=== PATIENT | female | born 1985 | race Caucasian/White ===

== ENCOUNTER 2018-07-31 06:59 | Emergency (ER) | payer OTHER, SELFPAY ==
[2018-07-31 07:01] VITALS: BP 133/88; PULSE 74; RESP 16; TEMP 37.2; O2SAT 100
[2018-07-31] MEDS: Ondansetron 4 MG/2 ML VIAL (07:25)
[2018-07-31] MEDS: Normal Saline 1,000 ML 1000 ML IV (07:30)
[2018-07-31 08:07] LABS: Abs Immature Grans 0.03 k/cumm (0.0-0.09); Absolute Basophil Count 0.01 k/cumm (0.0-0.2); Absolute Lymphocyte Count 1.04 k/cumm (1.2-3.4); Absolute Monocyte Count 0.63 k/cumm (0.11-0.7); Absolute Neutrophil Count 11.94 k/cumm (1.2-6.7); Basophils % 0.1; HCT 41.1 % (36.0-46.0); HGB 14.8 g/dL (12.0-15.5); Immature Grans % 0.2; Lymphocytes % 7.6; Mean Corpuscular Hemoglobin 31.1 pg (27.0-33.0); Mean Corpuscular Volume 86.3 fL (80-95); Mean Platelet Volume 9.5 fL (8.0-11.0); Monocytes % 4.6; Neutrophils % 87.5; Platelet Count 255 x1000/uL (130-400); RBC 4.76 m/cumm (4.00-5.20); RBC Distribution Width 12.1 % (11.7-14.6); White Blood Cell Count 13.65 k/cumm (4.4-10.8)
[2018-07-31 08:12] LABS: Bilirubin Negative (Negative); Blood Trace-lysed (Negative); Clarity Sl Cloudy; Glucose Negative (Negative); Ketones 80 mg/dL (Negative); Leukocyte Esterase Moderate (Negative); Nitrite Negative (Negative); Urobilinogen 0.2 EU/dL (Up TO 0.2)
[2018-07-31] MEDS: LORazepam 2 MG/ML VIAL (08:15)
[2018-07-31] MEDS: Lidocaine 2% Viscous 15 ML CUP (08:20)
[2018-07-31] MEDS: Mylanta Suspension 30 ML CUP (08:20)
[2018-07-31 08:30] LABS: Bacteria Many HPF (Negative); C & S Indicated? No/Sq. Contamination; Casts Negative LPF (Negative); Crystals Negative HPF (Negative); Epithelial Cells Many HPF (Negative); Mucus Negative (Negative); RBC 20-50 (0-2); WBC >50 HPF (0-5)
[2018-07-31 08:30] LABS: ALT 40 U/L (12-78); AST 21 U/L (15-37); Albumin 3.4 g/dL (3.4-5.0); Alkaline Phosphatase 93 U/L (46-116); Anion Gap 14.6 mmol/L (3-11); BUN 17 mg/dL (7-18); Bilirubin, Direct 0.16 mg/dL (0.00-0.20); CO2 21.4 mmol/L (21.0-32.0); CREATININE 0.84 mg/dL (0.55-1.02); Calcium 8.3 mg/dL (8.5-10.1); Chloride 102 mmol/L (98-107); Glucose 130 mg/dL (70-100); Lipase 49 U/L (73-393); Magnesium 1.5 mg/dL (1.8-2.4); Potassium 3.3 mmol/L (3.5-5.1); Sodium 138 mmol/L (136-145); Total Protein 7.2 g/dL (6.4-8.2)
[2018-07-31 08:32] LABS: Troponin I < 0.02 ng/mL (0.00-0.06)
[2018-07-31 09:00] VITALS: BP 98/53; PULSE 80; RESP 16; TEMP 37.2; O2SAT 96
== END 2018-07-31 09:02 | disposition home or self-care (01) ==
PROVIDERS: Emergency Provider Emergency Medicine; PCP Nurse Practitioner Family
DX: R11.2 Nausea with vomiting, unspecified (principal); R10.13 Epigastric pain; F10.10 Alcohol abuse, uncomplicated
CPT/HCPCS: 36415; 80053; 80076; 81025; 83690; 96360; 99283; 81003; 81015; 83735; 84484; 85025; J2060; J2405

== ENCOUNTER 2018-12-29 13:21 | Outpatient (REF) | payer OTHER, SELFPAY ==
--- NOTE | 2018-12-29 11:00 | PAPFT_PTH ---
PATIENT: Bethany Leblanc LOC: [facility] U#:[id number] AGE/SX: 33/F ROOM: RE12/29/[address]: SANTO Gordon : 1985 BED: DIS: 12/29/2018 SPEC #: [id number] RECD: 12/30/18 12:56 STATUS: HOLLY RELaura #: [id number] ZANE: 12/29/18 11:[address]: Savita Rosado DEPT: [facility] Cytology RECD BY: Hermila Almeida Tissues: 1 - CX/ENDOCX FOR PAP SMEARS Procedures: PAP THIN PREP/UVM Screening HPV DNA PROBE Comments: [id number]
[2019-01-19 12:34] LABS: HPV 16 RNA Result Negative (Negative)
[2019-01-19 12:35] LABS: HPV 18 & 45 RNA Result Negative (Negative)
== END 2018-12-29 13:41 ==
LOC: LBN 13:21
PROVIDERS: PCP Nurse Practitioner Family; Visit Provider Nurse Practitioner Family
DX: Z12.4 Encounter for screening for malignant neoplasm of cervix (principal); Z11.51 Encounter for screening for human papillomavirus (HPV)
CPT/HCPCS: 87625; 88142; 87624

== ENCOUNTER 2018-12-31 07:53 | Outpatient (CLI) | payer OTHER, SELFPAY ==
--- NOTE | 2018-12-31 07:30 | DI.US_ITS ---
EXAM: US ABDOMEN US ABDOMEN CLINICAL HISTORY: h/o hepatomegaly,etoh abuse,z87.19. h/o hepatomegaly,etoh abuse,z87.19 TECHNIQUE: Ultrasound abdomen performed using standard protocol. COMPARISON: No exams were available for comparison FINDINGS: LIVER: Normal. GALLBLADDER: No evidence of cholelithiasis. No evidence of wall thickening. No pericholecystic fluid identified. KIDNEYS: Kidneys are symmetric in size. No evidence of renal calculi. No evidence of hydronephrosis. No renal mass or cyst identified. BILIARY SYSTEM: Common bile duct measures < 7 mm. No intrahepatic biliary ductal dilation. ALEXIS'S SIGN: Negative. PANCREAS: Normal where visualized. SPLEEN: Not enlarged. ABDOMINAL AORTA AND IVC: Visualized portions normal caliber. ASCITES: None seen. IMPRESSION: Normal sonographic appearance of the upper abdomen.
== END 2018-12-31 08:13 ==
PROVIDERS: PCP Nurse Practitioner Family; Visit Provider Nurse Practitioner Family
DX: F10.19 Alcohol abuse with unspecified alcohol-induced disorder (principal); Z87.19 Personal history of other diseases of the digestive system
CPT/HCPCS: 76700

== ENCOUNTER 2019-01-19 09:33 | Outpatient (REF) | payer OTHER, SELFPAY | END 2019-01-19 09:53 | LOC: LBN 09:33 | PROVIDERS: PCP Nurse Practitioner Family; Visit Provider Nurse Practitioner Family | DX: A59.9 Trichomoniasis, unspecified (principal) | CPT/HCPCS: 87480; 87510; 87660 ==

== ENCOUNTER 2020-07-02 21:13 | Emergency (ER) | payer BC, SELFPAY ==
[2020-07-02] VITALS (21 sets, daily range): BP systolic 114–130; BP diastolic 71–105; PULSE 74–108; RESP 9–24; TEMP 36.3; O2SAT 93–100
[2020-07-02] MEDS: Normal Saline 1,000 ML 1000 ML IV (21:29)
[2020-07-02] MEDS: Ondansetron 4 MG/2 ML VIAL IVP (22:00)
[2020-07-02 22:09] LABS: Abs Immature Grans 0.14 10^3/uL (0.0-0.06); Absolute Lymphocyte Count 1.81 10^3/uL (1.2-3.4); Absolute Monocyte Count 1.19 10^3/uL (0.1-0.8); Basophils % 0.2; HCT 47.6 % (36.0-46.0); Immature Grans % 0.6; Lymphocytes % 8.2; MCH 30.5 pg (27.0-33.0); MCHC 35.7 % (32.0-36.0); MCV 85.3 fL (80-95); MPV 9.7 fL (8.0-11.0); Monocytes % 5.4; Neutrophils % 85.6; Nucleated RBC 0 %; Platelet Count 399 10^3/uL (130-400); RBC 5.58 10^6/uL (3.93-5.22); RDW 12.2 % (11.7-14.6); RDW-SD 38.1 fL
[2020-07-02 22:10] LABS: Absolute Basophil Count 0.04 10^3/uL (0.0-0.2); Absolute Neutrophil Count 18.92 10^3/uL (1.2-6.7)
--- NOTE | 2020-07-02 22:15 | W.ED.GENAD ---
Discharge Plan Disposition Patient Disposition: STILL A PATIENT Condition: Stable Discharge Details Chief Complaint: Nausea/Vomit/Diar Clinical Impression: Nausea & vomiting, Anxiety Primary Care Provider: Savita Rosado ED Provider: Wilbert Arvizu Home Meds and New Rx's Prescriptions: No Action melatonin 10 mg capsule 10 mg PO HS PRN (Reason: sleep) Qty: 90 RF: 0 escitalopram oxalate 20 mg tablet 20 mg PO DAILY Qty: 90 RF: 4 buspirone 10 mg tablet 10 mg PO BID Qty: 180 RF: 4 Medical Decision Making 34-year-old female reports increasing anxiety, depression, grieving her father's . She denies any suicidal or homicidal ideations and feels safe. She drank alcohol, hard liquor, a few shots both yesterday and today. Reports that she has had nausea and vomiting all day today, concerned about dehydration. She denies any fever, abdominal pain, bad food exposure or sick contacts. Patient is concerned that she cannot hold anything down and is requesting IV fluids as well as something for anxiety. Patient appears anxious, slightly dry, obtain IV access, give IV fluids, Zofran, 1 mg Ativan, obtain CBC, CMP, lipase, alcohol level, urinalysis, test, tox screen. Patient reports no significant change after the Zofran although she is requesting gary catalina Laboratory values reveal a white blood cell count of 22.10, hemoglobin 17, hematocrit 47.6, platelet count 399. No clear source of infection on her examination. Potassium 3.4, anion gap of 20.7 creatinine 1.3, GFR 47.17, total bili 1.9 alcohol less than 3. Patient unable to provide a urine sample. Patient given gary catalina, vomited x1. Will give 25 IV Phenergan, a liter of lactated Ringer's, 40 p.o. potassium. Patient reports anxiety improving with the IV Ativan Again patient appears well, nontoxic. Leukocytosis may simply be secondary to her vomiting today, again no clear sign of infection. Cannot completely explain her elevated anion gap. Like to repeat laboratory values after her IV fluids have completed. Case discussed with Dr. Avelar who will accept signout, requested VBG, BMP, A1C. Patient ambulatory without difficulty to the restroom, able to provide a urine sample. Medical Records Medical records reviewed: Yes I reviewed the patient's medical records. Lab Data Lab results reviewed: Yes I reviewed the patient's lab results. Labs: Laboratory Tests Range/Units 07/02/20 07/02/20 07/02/20 21:25 21:25 21:25 WBC (4.4-10.8) 10^3/uL 22.10 H RBC (3.93-5.22) 10^6/uL 5.58 H Hgb (11.2-15.7) g/dL 17.0 H Hct (36.0-46.0) % 47.6 H MCV (80-95) fL 85.3 MCH (27.0-33.0) pg 30.5 MCHC (32.0-36.0) % 35.7 RDW (11.7-14.6) % 12.2 Plt Count (130-400) 10^3/uL 399 MPV (8.0-11.0) fL 9.7 Immature Gran % 0.6 Neutrophils % 85.6 Band Neutrophils % Lymphocytes % 8.2 Atypical Lymphs % Monocytes % 5.4 Eosinophils % 0.0 Basophils % 0.2 Metamyelocytes % Myelocytes % Promyelocytes % Other Cells % Nucleated RBC % % 0 Absolute Neutrophils (1.2-6.7) 10^3/uL 18.92 H Absolute Lymphocytes (1.2-3.4) 10^3/uL 1.81 Absolute Monocytes (0.1-0.8) 10^3/uL 1.19 H Absolute Eosinophils (0.0-0.7) 10^3/uL 0.00 Absolute Basophils (0.0-0.2) 10^3/uL 0.04 RBC Morphology Polychromasia Hypochromasia Poikilocytosis Basophilic Stippling Anisocytosis Microcytosis Macrocytosis Spherocytes Tear Drop Cells Ovalocytes Stomatocytes Plata-Griswold Bodies [place] Cells/Echinocytes Acanthocytes (Spur) Schistocytes VBG pH (7.31-7.41) VBG pCO2 (41-51) mmHg VBG pO2 mmHg VBG HCO3 (23-28) mmol/L VBG Total CO2 (24-29) mmol/L VBG O2 Saturation % VBG Base Excess (-2-3) mmol/L Sodium (136-145) mmol/L 140 Potassium (3.5-5.1) mmol/L 3.4 L Chloride (98-107) mmol/L 99 Carbon Dioxide (21.0-32.0) mmol/L 20.3 L Anion Gap (3-11) mmol/L 20.7 H BUN (7-18) mg/dL 18 Creatinine (0.55-1.02) mg/dL 1.3 H Estimated GFR/1.73 m2 (mL/min/1.73m2) 47.17 Glucose (74-106) mg/dL 184 H Calcium (8.5-10.1) mg/dL 9.5 Total Bilirubin (0.2-1.0) mg/dL 1.9 H AST (15-37) U/L 20 ALT (14-59) U/L 23 Alkaline Phosphatase (46-116) U/L 96 Total Protein (6.4-8.2) g/dL 8.9 H Albumin (3.4-5.0) g/dL 4.1 Lipase (73-393) U/L 41 Ethyl Alcohol (<3) mg/dL < 3.0 Range/Units 07/02/20 07/02/20 07/02/20 23:25 23:25 23:40 WBC (4.4-10.8) 10^3/uL Cancelled RBC (3.93-5.22) 10^6/uL Cancelled Hgb (11.2-15.7) g/dL Cancelled Hct (36.0-46.0) % Cancelled MCV (80-95) fL Cancelled MCH (27.0-33.0) pg Cancelled MCHC (32.0-36.0) % Cancelled RDW (11.7-14.6) % Cancelled Plt Count (130-400) 10^3/uL Cancelled MPV (8.0-11.0) fL Cancelled Immature Gran % Cancelled Neutrophils % Cancelled Band Neutrophils % Cancelled Lymphocytes % Cancelled Atypical Lymphs % Cancelled Monocytes % Cancelled Eosinophils % Cancelled Basophils % Cancelled Metamyelocytes % Cancelled Myelocytes % Cancelled Promyelocytes % Cancelled Other Cells % Cancelled Nucleated RBC % % Cancelled Absolute Neutrophils (1.2-6.7) 10^3/uL Cancelled Absolute Lymphocytes (1.2-3.4) 10^3/uL Cancelled Absolute Monocytes (0.1-0.8) 10^3/uL Cancelled Absolute Eosinophils (0.0-0.7) 10^3/uL Cancelled Absolute Basophils (0.0-0.2) 10^3/uL Cancelled RBC Morphology Cancelled Polychromasia Cancelled Hypochromasia Cancelled Poikilocytosis Cancelled Basophilic Stippling Cancelled Anisocytosis Cancelled Microcytosis Cancelled Macrocytosis Cancelled Spherocytes Cancelled Tear Drop Cells Cancelled Ovalocytes Cancelled Stomatocytes Cancelled Plata-Griswold Bodies Cancelled Anni Cells/Echinocytes Cancelled Acanthocytes (Spur) Cancelled Schistocytes Cancelled VBG pH (7.31-7.41) 7.44 H VBG pCO2 (41-51) mmHg 39 L VBG pO2 mmHg 37 VBG HCO3 (23-28) mmol/L 26 VBG Total CO2 (24-29) mmol/L 23 L VBG O2 Saturation % 70 VBG Base Excess (-2-3) mmol/L 2 Sodium (136-145) mmol/L Cancelled Potassium (3.5-5.1) mmol/L Cancelled Chloride (98-107) mmol/L Cancelled Carbon Dioxide (21.0-32.0) mmol/L Cancelled Anion Gap (3-11) mmol/L Cancelled BUN (7-18) mg/dL Cancelled Creatinine (0.55-1.02) mg/dL Cancelled Estimated GFR/1.73 m2 (mL/min/1.73m2) Cancelled Glucose (74-106) mg/dL Cancelled Calcium (8.5-10.1) mg/dL Cancelled Total Bilirubin (0.2-1.0) mg/dL Cancelled AST (15-37) U/L Cancelled ALT (14-59) U/L Cancelled Alkaline Phosphatase (46-116) U/L Cancelled Total Protein (6.4-8.2) g/dL Cancelled Albumin (3.4-5.0) g/dL Cancelled Lipase (73-393) U/L Ethyl Alcohol (<3) mg/dL HPI General Mode of arrival: EMS. Date/Time Provider Initiated Documentation: 07/02/20 21:17. Limitations to Documentation: no limitations. Information obtained by: patient and EMS. HPI Narrative: This is a 34-year-old female, past medical history of anxiety, depression, alcohol abuse in remission, presented to the ER for evaluation via EMS. Patient states that she has been sober for 2 years, drink a few shots of alcohol yesterday and today, developed nausea, vomiting, increased anxiety and grief over her father's . She denies feeling suicidal or homicidal. Patient reports that she has been vomiting all day, one episode of diarrhea, simply cannot hold anything down and concerned about dehydration. She denies recent illness or trauma. Denies bad food exposure or sick contacts. She denies headache, fever, neck pain, chest pain, shortness of breath, back pain, abdominal pain, dysuria, hematuria, numbness, tingling, weakness. Related Data Home Medications Medication Instructions Recorded Confirmed escitalopram oxalate 20 mg tablet 20 mg PO DAILY #90 tab 02/26/20 07/02/20 melatonin 10 mg capsule 10 mg PO HS PRN #90 cap 04/29/20 07/02/20 buspirone 10 mg tablet 10 mg PO BID #180 tab 05/31/20 07/02/20 Previous Rx's Medication Instructions Recorded escitalopram oxalate 20 mg tablet 20 mg PO DAILY #90 tab 02/26/20 melatonin 10 mg capsule 10 mg PO HS PRN #90 cap 04/29/20 buspirone 10 mg tablet 10 mg PO BID #180 tab 05/31/20 Allergies Allergy/AdvReac Type Severity Reaction Status Date / Time No Known Allergies Allergy Verified 07/02/20 21:23 General Stated Complaint: Nausea/Vomit/Diar JOSUÉ: 3 Review of Systems Constitutional Constitutional: Denies fatigue, Denies fever(s), Denies headache(s) and Denies weakness ENT Ears, Nose, Mouth, and Throat: Denies headache(s) and Denies neck pain Cardiovascular Cardiovascular: Denies chest pain and Denies dyspnea Respiratory Respiratory: Denies cough and Denies dyspnea Gastrointestinal Gastrointestinal: Denies abdominal pain, Denies constipation, Reports diarrhea, Reports nausea and Reports vomiting Genitourinary Genitourinary: Denies dysuria Musculoskeletal Musculoskeletal: Denies back pain, Denies neck pain, Denies numbness and Denies tingling Integumentary/Breasts Skin/Breast: Denies rash Neurologic Neurologic: Denies headache(s), Denies numbness, Denies tingling and Denies weakness Psychiatric Psychiatric: Reports anxiety and Reports depression Endocrine Endocrine: Denies fatigue [facility] Medical History Alcohol use disorder, severe, in early remission Generalized anxiety disorder Grief Major depressive disorder Surgical History History of repair of anterior cruciate ligament of right knee (~2005) Family History Mother Hyperlipidemia Father Colon cancer Maternal Grandfather , in his 70s Hyperlipidemia AAA (abdominal aortic aneurysm) Heart disease Maternal Grandmother , at 52 of brain aneurysm Brain aneurysm Paternal Grandfather Hypertension Paternal Grandmother No problems noted. Social History Smoking/Tobacco Use Status: Never Smoking risk assessment performed?: Yes Alcohol Intake: current Alcohol type: hard liquor Drug use: Occasionally Substance use type: marijuana Caregiver/Support person: No Household members: friend(s) Housing: condominium Communication Needs: None Do you need help understanding health information?: Never Pets and animals: Yes (bunnies) Sexually active: No Do you think of yourself as: straight/heterosexual Current gender identity: decline to answer What is your relationship status?: never How often do you talk on the phone with friends or family?: three or more times per week How often do you get together with friends or relatives?: decline to answer How often do you attend anabaptist or anglican services?: 1-3 times per year Do you belong to any clubs or organized social groups?: decline to answer Panel score (0-1 are the most socially isolated patients): 1 Frequency: does not exercise Keyanna/Restorationism: Denominational Special keyanna needs: No Seatbelt use: always Helmet use: Yes Helmet use: always Drive intox or ride w/intox tilt tray driver: No Do you feel safe at home: Yes Do you feel safe in your relationship?: Yes Female Reproductive History Menstrual control method: none History History 0 Para Hx # Term Pregnancies Multiple births Hx # Pregnancies Ectopic pregnancies AB induced Hx Number of Living Children AB spontaneous Exam Const General: cooperative, anxious and other (Dry heaving, tearful) Orientation: alert, awake and oriented x3 [facility] Head: normal to inspection, normocephalic and atraumatic Face and sinus: normal facial exam Mouth: moist mucous membranes abnormal (Dry) Eyes General: appearance normal, both eyes and all related structures Conjunctivae: conjunctivae normal Neck Neck: normal visual inspection, full ROM, no meningeal signs, trachea midline and supple Resp Effort & Inspection: normal respiratory effort and able to speak in complete sentences Auscultation: clear to auscultation bilaterally Cardio Rate: regular rate Rhythm: regular rhythm GI Palpation: soft, not firm, no guarding, no pulsatile masses and nontender Auscultation: normal bowel sounds Back/Spine/Pelvis Back: No back tenderness Skin General skin exam: no rashes or lesions noted Neuro General: patient alert, patient awake, moves all extremities and no focal motor deficits Cognition: normal cognition Speech: speech normal Motor: muscle tone normal throughout Sensory Exam: no sensory deficits noted Extrem General: normal to inspection, full ROM, capillary refill normal and no pedal edema Psych Appearance: grossly normal Mental Status: mental status grossly normal Course Vital Signs Vital signs: Vital Signs Temperature 36.3 C L 07/02/20 21:14 Pulse 82 07/02/20 21:14 Respiratory Rate 24 07/02/20 21:14 Pulse Oximetry 99 07/02/20 21:14 Temperature 36.3 C L 07/02/20 21:14 Temperature Source Skin 07/02/20 21:14 Pulse 82 07/02/20 21:14 Respiratory Rate 24 07/02/20 21:14 Blood Pressure Position Supine 07/02/20 21:14 Pulse Oximetry 99 07/02/20 21:14 Oxygen Delivery Method Room Air 07/02/20 21:14 Oxygen Flow Rate 0 07/02/20 21:14 Lab/Test Results Lab/Test Results: Laboratory Tests Range/Units 07/02/20 21:25 WBC (4.4-10.8) 10^3/uL 22.10 H RBC (3.93-5.22) 10^6/uL 5.58 H Hgb (11.2-15.7) g/dL 17.0 H Hct (36.0-46.0) % 47.6 H MCV (80-95) fL 85.3 MCH (27.0-33.0) pg 30.5 MCHC (32.0-36.0) % 35.7 RDW (11.7-14.6) % 12.2 Plt Count (130-400) 10^3/uL 399 MPV (8.0-11.0) fL 9.7 Immature Gran % 0.6 Neutrophils % 85.6 Lymphocytes % 8.2 Monocytes % 5.4 Eosinophils % 0.0 Basophils % 0.2 Nucleated RBC % % 0 Absolute Neutrophils (1.2-6.7) 10^3/uL 18.92 H Absolute Lymphocytes (1.2-3.4) 10^3/uL 1.81 Absolute Monocytes (0.1-0.8) 10^3/uL 1.19 H Absolute Eosinophils (0.0-0.7) 10^3/uL 0.00 Absolute Basophils (0.0-0.2) 10^3/uL 0.04
[2020-07-02 22:22] LABS: ALT 23 U/L (14-59); AST 20 U/L (15-37); Albumin 4.1 g/dL (3.4-5.0); Alkaline Phosphatase 96 U/L (46-116); Anion Gap 20.7 mmol/L (3-11); BUN 18 mg/dL (7-18); Bilirubin, Total 1.9 mg/dL (0.2-1.0); CO2 20.3 mmol/L (21.0-32.0); CREATININE 1.3 mg/dL (0.55-1.02); Calcium 9.5 mg/dL (8.5-10.1); Chloride 99 mmol/L (98-107); Estimated GFR 47.17 (mL/min/1.73m2); Glucose 184 mg/dL (74-106); Lipase 41 U/L (73-393); Potassium 3.4 mmol/L (3.5-5.1); Sodium 140 mmol/L (136-145); Total Protein 8.9 g/dL (6.4-8.2)
[2020-07-02 22:31] LABS: ETHANOL BLOOD < 3.0 mg/dL (<3)
[2020-07-02] MEDS: Lactated Ringers 1,000 ML 1000 ML IV (22:42)
[2020-07-02] MEDS: LORazepam 2 MG/ML VIAL 1 MG IVP (22:42)
[2020-07-02] MEDS: Potassium Chloride 20 MEQ TABCR 40 MEQ PO (22:56)
[2020-07-02 23:48] LABS: BE (Venous) 2 mmol/L (-2-3); HCO3 (Venous) 26 mmol/L (23-28); O2 Sat (Venous) 70 %; TCO2 (Venous) 23 mmol/L (24-29); pCO2 (Venous) 39 mmHg (41-51); pH (Venous) 7.44 (7.31-7.41); pO2 (Venous) 37 mmHg
[2020-07-02 23:57] LABS: Anion Gap 13.4 mmol/L (3-11); BUN 15 mg/dL (7-18); CO2 25.6 mmol/L (21.0-32.0); CREATININE 1.1 mg/dL (0.55-1.02); Calcium 8.3 mg/dL (8.5-10.1); Chloride 104 mmol/L (98-107); Glucose 115 mg/dL (74-106); Potassium 3.2 mmol/L (3.5-5.1); Sodium 143 mmol/L (136-145)
[2020-07-02 23:58] LABS: Bilirubin Negative (Negative); Blood Moderate (Negative); Clarity Clear (Clear); Glucose Negative (Negative); Ketones 80 mg/dL (Negative); Leukocyte Esterase Trace (Negative); Nitrite Negative (Negative); Urobilinogen 0.2 EU/dL (Up TO 0.2)
[2020-07-03 00:01] LABS: Hemoglobin A1C 5.4 % (<5.7)
[2020-07-03 00:07] VITALS: BP 122/73; PULSE 102; O2SAT 99
[2020-07-03 00:09] LABS: Bacteria Rare HPF (Negative); C & S Indicated? Yes; Casts Negative LPF (Negative); Crystals Negative HPF (Negative); Epithelial Cells Rare HPF (Negative); Mucus Negative (Negative)
[2020-07-03 00:19] LABS: *AMPHETAMINES SCREEN URINE Negative (Negative); *BARBITURATES SCREEN URINE Negative (Negative); *BENZODIAZEPINES SCREEN URINE Negative (Negative); Cannabinoids THC Positive (Negative); Cocaine Screen,Urine Negative (Negative); METHADONE URINE SCREEN Negative (Negative); OPIATES URINE SCREEN Negative (Negative)
[2020-07-03 00:24] LABS: Tricyclic Antidepressants Negative (Negative)
[2020-07-03] MEDS: POTASSIUM CHLORIDE 10 MEQ/100 ML BAG 100 MEQ IVPB (00:38)
[2020-07-03] MEDS: FAMOTIDINE 20 MG/50 ML BAG 200 MG IVPB (00:38)
[2020-07-03] MEDS: Lactated Ringers 1,000 ML 250 ML IV (00:38)
[2020-07-03] MEDS: diphenhydrAMINE 50 MG/ML VIAL 25 MG IVP (00:39)
[2020-07-03 01:35] VITALS: BP 117/45; PULSE 88; O2SAT 96
[2020-07-03 02:13] VITALS: PULSE 94; O2SAT 100
== END 2020-07-03 03:10 | disposition home or self-care (01) ==
PROVIDERS: Physician Assistant; Emergency Provider Emergency Medicine; PCP Nurse Practitioner Family
DX: R11.2 Nausea with vomiting, unspecified (principal); D72.829 Elevated white blood cell count, unspecified; E87.6 Hypokalemia; F10.21 Alcohol dependence, in remission; F41.9 Anxiety disorder, unspecified
CPT/HCPCS: 80048; 80053; 80307; 81025; 82805; 83690; 96361; 96365; 96367; 96368; 96375; 99284; 80320; 81003; 81015; 83036; 85025; 87086; J1200; J2060; J2405; J3480

== ENCOUNTER 2020-07-04 13:22 | Emergency (ER) | payer BC, SELFPAY ==
[2020-07-04] VITALS (21 sets, daily range): BP systolic 104–144; BP diastolic 74–98; PULSE 68–106; RESP 10–27; TEMP 36.6–37.2; O2SAT 97–99
--- NOTE | 2020-07-04 13:34 | W.ED.GENAD ---
Discharge Plan Disposition Patient Disposition: HOME Condition: Stable Discharge Details Clinical Impression: Nausea & vomiting, Grief Primary Care Provider: Saivta Rosado ED Provider: Sendy Dumont Home Meds and New Rx's Prescriptions: New promethazine 25 mg suppository 25 mg FL Q6H PRN (Reason: nausea and vomiting) Qty: 12 RF: 0 Continued melatonin 10 mg capsule 10 mg PO HS PRN (Reason: sleep) Qty: 90 RF: 0 escitalopram oxalate 20 mg tablet 20 mg PO DAILY Qty: 90 RF: 4 buspirone 10 mg tablet 10 mg PO BID Qty: 180 RF: 4 promethazine 25 mg tablet 25 mg PO Q6H PRNQty: 10 RF: 0 famotidine 20 mg tablet 20 mg PO BID Qty: 10 RF: 0 Discharge Instructions Instructions: Depression (ED), Acute Nausea and Vomiting (ED) Additional Instructions: Rectal Phenergan has been prescribed in the event you have recurrence of your nausea or vomiting. This has been sent to your pharmacy. Please stop self inducing vomiting as this may be precipitating your current issues. Please abstain from alcohol. Please see list that was supplied by [facility] for local options for continued care for depression. Please reconsider establishing with [facility] their number is on the paper attached. Please follow-up with your primary care within the next 48 hours for reevaluation continue care of your depression as well. If you develop inability stay hydrated, fever/chills, abdominal pain, suicidal thoughts or other new/worsening symptoms please seek care urgently once again. Referrals: Savita Rosado, MICA PASTER [Primary Care Provider] - Discharge Data Discharge Date/Time-TO BE ENTERED AT DEPARTURE: 07/04/20 19:22 Medical Decision Making <Caty Chance - Last Filed: 07/05/20 08:21> 34-year-old female presents to the ER via EMS with chief complaint of nausea vomiting. She was seen here 48 hours for similar after drinking some alcohol. She does endorse alcohol use this morning of vodka on able to give me an amount. She was given 4 mg of Zofran IM by EMS prior to arrival. Denies any illicit drugs. Denies any diarrhea. Intoxicated. Does have a past medical history alcohol use disorder, generalized anxiety, major depressive disorder. Patient reevaluation she has received 1 L normal saline, promethazine 25 mg IV, 4 mg Zofran IV and 1 mg lorazepam IV. Upon entering room patient is still complaining of nausea. She has had one episode of emesis since being in the department. Her labs are much improved from last visit white blood cell count 11.97, potassium 3.3, anion gap 16.2, glucose 132, total bilirubin 1.4 AST is 40, ethyl alcohol is less than 3.0. Patient is denying any pain at this time. Only complaint is he cannot get comfortable and is continuing to have nausea. Care is to be handed off to oncoming provider HUGO Jaimes pending reevaluation and disposition. At this time I do expect disposition to be discharged. Patient was hemodynamically stable alert and oriented at the time of this dictation. <HUGO Orr - Last Filed: 07/04/20 20:41> Care transition myself from Katelin Caceres NP. Please see her initial note regarding history, presentation and exam. In brief, patient is a pleasant 34-year-old female with chief complaint of nausea and vomiting after large amount of alcohol intake. This is associated with the recent loss of her father and the patient's preferred coping mechanism. Patient has received Zofran, promethazine, lorazepam. Care transitioned to myself with reassessment and PO challenge pending. Reevaluated the patient, she continued to endorse nausea. Will give IV compazine. Also discussed her coping mechanism of alcohol and depression. Patient reports his mother father's caregiver immediately begins crying when we discussed this. She is not actively expressing suicidal homicidal ideations. However, discussed that evaluation with mental health would be appropriate as the patient would likely benefit greatly from routine therapy at this time. HOping this may also help reduce the amount of alcohol intake she has been having. Reevaluated patient. She is sleeping but when around continues to report pain level of nausea. Patient did vomit on the floor, vomiting blankets. She has refused emesis bags. If no been reported patient was also self inducing vomiting which was witnessed by at least 2 members of nursing staff. Patient was evaluated by mental [facility]. Per their report, patient refused to speak with them. She prefers to establish care with her counselor with her primary care provider. However, she is aware of the local resources and a list of these resources was supplied by mental health. She continues to deny thoughts of self-harm, suicidal ideation or thoughts of harming others to mental health I reevaluated the patient. She is requesting discharge at this time. She and I did discuss that she was self inducing vomiting earlier. She reports that this has been what has been leading to all of her episodes of emesis. Encourage cessation of this activity. Also encouraged that she abstain from alcohol intake. Patient plans to follow-up with her primary care in the next 1 to 2 days for reevaluation and discuss counseling further. Strict return precautions were discussed. Will prescribe Zofran in the event that she has any recurrence of her nausea or vomiting. All of her questions and concerns were addressed and she is in agreement this plan. HPI <Caty Chance - Last Filed: 07/05/20 08:21> General Mode of arrival: EMS. Date/Time Provider Initiated Documentation: 07/04/20 13:33. Limitations to Documentation: no limitations. Information obtained by: patient, EMS, RN notes reviewed and old records reviewed. HPI Narrative: 34-year-old female presents to the ER via EMS with chief complaint of nausea vomiting. She was seen here 48 hours for similar after drinking some alcohol. She does endorse alcohol use this morning of vodka on able to give me an amount. She was given 4 mg of Zofran IM by EMS prior to arrival. Denies any illicit drugs. Denies any diarrhea. Intoxicated. Does have a past medical history alcohol use disorder, generalized anxiety, major depressive disorder. Related Data Home Medications Medication Instructions Recorded Confirmed escitalopram oxalate 20 mg tablet 20 mg PO DAILY #90 tab 02/26/20 07/02/20 melatonin 10 mg capsule 10 mg PO HS PRN #90 cap 04/29/20 07/02/20 buspirone 10 mg tablet 10 mg PO BID #180 tab 05/31/20 07/02/20 famotidine 20 mg PO BID #10 tab 07/03/20 promethazine 25 mg PO Q6H PRN #10 tab 07/03/20 promethazine 25 mg FL Q6H PRN #12 ea 07/04/20 Previous Rx's Medication Instructions Recorded escitalopram oxalate 20 mg tablet 20 mg PO DAILY #90 tab 02/26/20 melatonin 10 mg capsule 10 mg PO HS PRN #90 cap 04/29/20 buspirone 10 mg tablet 10 mg PO BID #180 tab 05/31/20 famotidine 20 mg PO BID #10 tab 07/03/20 promethazine 25 mg PO Q6H PRN #10 tab 07/03/20 promethazine 25 mg FL Q6H PRN #12 ea 07/04/20 Allergies Allergy/AdvReac Type Severity Reaction Status Date / Time No Known Allergies Allergy Verified 07/02/20 21:23 General JOSUÉ: 3 Review of Systems <Caty Chance - Last Filed: 07/05/20 08:21> Narrative: Constitutional: Negative for weight loss, alert and oriented, well groomed, overweight body habitus, appears comfortable. HEENT: Denies trauma, headaches, blurry vision, nasal discharge, sore throat, trouble swallowing. Chest: Denies chest pain, palpitations, irregular rhythm, hypertension. Respiratory: Denies Shortness of breath, cough, hemoptysis. GI: Denies abdominal pain,diarrhea, constipation. Positive nausea vomiting : Denies dysuria, hematuria, flank pain, rectal bleeding. Neuro: Denies dizziness, blurry vision, weakness, syncope, headache or facial numbness. Hematologic: Denies easy bruising, intolerance to heat or cold, hair loss. PFSH <Caty Chance - Last Filed: 07/05/20 08:21> Medical History Alcohol use disorder, severe, in early remission Generalized anxiety disorder Grief Major depressive disorder Surgical History History of repair of anterior cruciate ligament of right knee (~2005) Family History Mother Hyperlipidemia Father Colon cancer Maternal Grandfather , in his 70s Hyperlipidemia AAA (abdominal aortic aneurysm) Heart disease Maternal Grandmother , at 52 of brain aneurysm Brain aneurysm Paternal Grandfather Hypertension Paternal Grandmother No problems noted. Social History Smoking/Tobacco Use Status: Never Smoking risk assessment performed?: Yes Alcohol Intake: current Alcohol type: hard liquor Drug use: Never Substance use type: marijuana Caregiver/Support person: No Household members: friend(s) Housing: condominium Communication Needs: None Do you need help understanding health information?: Never Pets and animals: Yes (bunnies) Sexually active: No Do you think of yourself as: straight/heterosexual Current gender identity: decline to answer What is your relationship status?: never How often do you talk on the phone with friends or family?: three or more times per week How often do you get together with friends or relatives?: decline to answer How often do you attend roman catholic or druze services?: 1-3 times per year Do you belong to any clubs or organized social groups?: decline to answer Panel score (0-1 are the most socially isolated patients): 1 Frequency: does not exercise Keyanna/Congregation: [employer] Special keyanna needs: No Seatbelt use: always Helmet use: Yes Helmet use: always Drive intox or ride w/intox ambulette driver: No Do you feel safe at home: Yes Do you feel safe in your relationship?: Yes Female Reproductive History Menstrual control method: none History History 0 Para Hx # Term Pregnancies Multiple births Hx # Pregnancies Ectopic pregnancies AB induced Hx Number of Living Children AB spontaneous Exam <Caty Chance SwipeGood Filed: 07/05/20 08:21> Narrative Exam Narrative: Constitutional: Alert and oriented x3. Appears stated age. Normal body habitus. Head: Normocephalic, no trauma. Eyes: Pupils PERRLA, Red reflex noted, EOM's intact. Eyelids symmetrical without lesions, discharge, or swelling. ENT: Bilateral TM's WNL, External ear normal to inspection, no mastoid TTP, swelling, or erythema, Nasal turbinates WNL, no nasal discharge. Normal dentition, Posterior pharynx WNL, no exudate. Chest: RRR, Normal S1, S2, distal pulses intact. Resp: Lungs clear to auscultation bilaterally, no wheezes, rales, or rhonchi. Abdomen:Soft, nontender to palpation. Musculoskeletal: Normal gait, 5/5 strength to all four extremities. Skin: No suspicious rashes or lesions. Capillary refill less than 2 sec. Neurologic: Cranial nerves II-XII intact. Alert and oriented x 3. DTR's intact. Hematologic/Lymphatic: No ecchymosis, no lymphadenopathy. Sign Out <Caty Meron - Last Filed: 07/05/20 08:21> Sign Out Data: Sign Out Comment: Patient re-eval after meds, PO challenge, expected disposition DC Last updated by Caty Chance at 07/04/20 15:49
[2020-07-04] MEDS: Normal Saline 1,000 ML 1000 ML IV ×2 (13:41→16:27)
[2020-07-04 13:49] LABS: Abs Immature Grans 0.03 10^3/uL (0.0-0.06); Absolute Basophil Count 0.05 10^3/uL (0.0-0.2); Absolute Eosinophil Count 0.01 10^3/uL (0.0-0.7); Absolute Lymphocyte Count 3.21 10^3/uL (1.2-3.4); Absolute Monocyte Count 0.61 10^3/uL (0.1-0.8); Absolute Neutrophil Count 8.06 10^3/uL (1.2-6.7); Basophils % 0.4; Eosinophils % 0.1; HCT 42.7 % (36.0-46.0); HGB 15.2 g/dL (11.2-15.7); Immature Grans % 0.3; Lymphocytes % 26.8; MCH 30.5 pg (27.0-33.0); MCHC 35.6 % (32.0-36.0); MCV 85.6 fL (80-95); MPV 9.3 fL (8.0-11.0); Monocytes % 5.1; Neutrophils % 67.3; Nucleated RBC 0 %; Platelet Count 298 10^3/uL (130-400); RBC 4.99 10^6/uL (3.93-5.22); RDW 12.2 % (11.7-14.6); RDW-SD 38.1 fL; WBC 11.97 10^3/uL (4.4-10.8)
[2020-07-04] MEDS: LORazepam 2 MG/ML VIAL 1 MG IVP (13:59)
[2020-07-04 14:12] LABS: ALT 33 U/L (14-59); AST 40 U/L (15-37); Albumin 3.6 g/dL (3.4-5.0); Alkaline Phosphatase 75 U/L (46-116); Anion Gap 15.2 mmol/L (3-11); BUN 16 mg/dL (7-18); Bilirubin, Total 1.4 mg/dL (0.2-1.0); CO2 22.8 mmol/L (21.0-32.0); CREATININE 0.9 mg/dL (0.55-1.02); Calcium 8.9 mg/dL (8.5-10.1); Chloride 103 mmol/L (98-107); Glucose 132 mg/dL (74-106); Magnesium 1.8 mg/dL (1.8-2.4); Potassium 3.3 mmol/L (3.5-5.1); Sodium 141 mmol/L (136-145)
[2020-07-04 14:14] LABS: Total Protein 7.9 g/dL (6.4-8.2)
[2020-07-04 14:15] LABS: ETHANOL BLOOD < 3.0 mg/dL (<3)
[2020-07-04] MEDS: Ondansetron 4 MG/2 ML VIAL IVP (14:51)
[2020-07-04 15:19] LABS: Bilirubin Negative (Negative); Blood Trace-intact (Negative); Clarity Clear (Clear); Glucose Negative (Negative); Ketones 40 mg/dL (Negative); Leukocyte Esterase Negative (Negative); Nitrite Negative (Negative); Specific Gravity 1.025 (1.005-1.025); Urobilinogen 0.2 EU/dL (Up TO 0.2); pH 8.5 (5-8)
[2020-07-04 15:27] LABS: Bacteria Negative HPF (Negative); C & S Indicated? No; Casts Negative LPF (Negative); Crystals Negative HPF (Negative); Epithelial Cells Rare HPF (Negative); Mucus Negative (Negative); WBC Negative HPF (0-5)
[2020-07-04] MEDS: diphenhydrAMINE 50 MG/ML VIAL 25 MG IVP (16:01)
[2020-07-04] MEDS: FAMOTIDINE 20 MG/50 ML BAG 200 MG IVPB (16:02)
[2020-07-04] MEDS: Prochlorperazine 10 MG/2 ML VIAL IVP (16:55)
--- NOTE | 2020-07-05 15:50 | PDOC.MHCN_ITS ---
Date of service: 07/04/20 Time of Service: 15:50 Mental Health Crisis Note Presenting Issue How did you arrive at the ED and why did you come: Client arrived via ambulance with complaint of severe nausea and vomiting after ingesting an unspecified amount of alcohol earlier in the AM today. It is reported by attending medical provider that the client suffered a loss recently and that her primary coping mechanism to treat her depressive symptoms with alcohol use and alleged self- induced vomiting behaviors. Precipitating Factors Client appearance was disheveled with poor general grooming. She is alert and o riented to time, person, place, and global circumstance. Memory seemed intact with impaired concentration. Eye contact poor. She presented in significant discomfort / pain and was observed to continuously writhe around on the hospital bed while complaining about severe nausea. Engagement was minimal - she offered monosyllabic yes/no responses to most questions and did not appear interested in discussing presenting issues due to preoccupation with severity of adverse physical symptoms. No evidence of delusions, paranoia, or psychotic thought process. She denied current SI/HI/SIB, intent or plan and did not appear interested in extending assessment beyond initial contact. She denied issues with alcohol / substance abuse. Assessment tools not completed due to lack of engagement. Disposition BEHAVIOR: Not engaged EYE CONTACT: Poor MOOD: N/A AFFECT: Client appeared distractible and was preoccupied with nausea complaint APPETITE: N/A SLEEP(trouble falling/staying asleep: N/A Plan The client declined intake and need for services through [facility] at time of interaction. She reported that she will follow-up with her PCP about a counseling referral and agreed to have this commercial lines underwriter leave additional resource options at the nurse station, to be distributed upon discharge. The following resources were left: - [facility] grief-support list - Behavioral Health Provider Listing - [facility] Support line contact information Signature Clinician's Name/Title: Lonnie Salinas [facility] [place] clinician / [facility], [place]
== END 2020-07-04 19:22 | disposition home or self-care (01) ==
PROVIDERS: Registered Nurse Emergency; Emergency Provider Physician Assistant; PCP Nurse Practitioner Family
DX: R11.0 Nausea (principal); R11.2 Nausea with vomiting, unspecified; F32.9 Major depressive disorder, single episode, unspecified; R10.10 Upper abdominal pain, unspecified
CPT/HCPCS: 80053; 81025; 96361; 96365; 96366; 96368; 96375; 99284; 80320; 81003; 81015; 83735; 85025; J0780; J1200; J2060; J2405

== ENCOUNTER 2021-12-01 09:22 | Outpatient (REF) | payer BC, SELFPAY ==
--- NOTE | 2021-12-01 08:30 | PAPFT_PTH ---
PATIENT: Bethany Leblanc LOC: [facility] U#:[id number] AGE/SX: 36/F ROOM: RE12/01/[address]: SANTO Gordon : 1985 BED: DIS: 12/01/2021 SPEC #: [id number] RECD: 12/01/21 12:49 STATUS: HOLLY REQ #: [id number] ZANE: 12/01/21 08:[address]: Savita Rosado DEPT: [facility] Cytology RECD BY: Hermila Almeida Tissues: 1 - CX/ENDOCX FOR PAP SMEARS Procedures: PAP THIN PREP/[facility]VM Screening HPV DNA PROBE Comments: [id number] (HPV 16 & 18/45)
== END 2021-12-01 09:23 | disposition home or self-care (01) ==
LOC: LBN 09:22
PROVIDERS: PCP Nurse Practitioner Family; Visit Provider Nurse Practitioner Family
DX: R87.810 Cervical high risk human papillomavirus (HPV) DNA test positive (principal); Z12.4 Encounter for screening for malignant neoplasm of cervix; Z11.51 Encounter for screening for human papillomavirus (HPV)
CPT/HCPCS: 88142; 87624

== ENCOUNTER 2021-12-19 14:40 | Outpatient (REF) | payer BC, SELFPAY ==
--- NOTE | 2021-12-19 11:10 | CER_PTH ---
PATIENT: Bethany Leblanc LOC: [facility] U#:[id number] AGE/SX: 36/F ROOM: RE12/19/[address]: Yanet Martinez MD : 1985 BED: DIS: 12/19/2021 SPEC #: [id number] RECD: 12/19/21 14:44 STATUS: HOLLY REQ #: [id number] ZANE: 12/19/21 11:[address]: Yanet Martinez DEPT: Surgical Specimen RECD BY: Hermila Almeida ENTERED: 12/19/21 14:45 SP TYPE: CER OT DR: SANTO Gordon Tissues: 1 - CERVICAL BIOPSY Procedures: GROSS AND MICRO LEVEL 4 Comments: [id number]
== END 2021-12-19 14:41 | disposition home or self-care (01) ==
LOC: LBN 14:40
PROVIDERS: PCP Nurse Practitioner Family; Visit Provider Obstetrics & Gynecology
DX: D28.7 Benign neoplasm of other specified female genital organs (principal)
CPT/HCPCS: 88305

== ENCOUNTER 2023-01-31 10:26 | Outpatient (REF) | payer BC, SELFPAY ==
--- NOTE | 2023-01-31 09:30 | PAPFT_PTH ---
PATIENT: Bethany Leblanc LOC: [facility] U#:[id number] AGE/SX: 37/F ROOM: RE01/31/[address]: Yanet Martinez MD : 1985 BED: DIS: 01/31/2023 SPEC #: [id number] RECD: 01/31/23 12:46 STATUS: HOLLY RELaura #: [id number] ZANE: 01/31/23 09:[address]: Yanet Martinez DEPT: [facility] Cytology RECD BY: Hermila Almeida ENTERED: 01/31/23 12:46 SP TYPE: PAPFT OTHR DR: Savita Rosado, CONSTRUCTION EQUIPMENT OPERATOR Tissues: 1 - CX/ENDOCX FOR PAP SMEARS Procedures: PAP THIN PREP/UVM Screening HPV DNA PROBE Comments: [id number] (HPV 16 & 18/45)
== END 2023-01-31 10:27 | disposition home or self-care (01) ==
LOC: LBN 10:26
PROVIDERS: PCP Nurse Practitioner Family; Visit Provider Obstetrics & Gynecology
DX: Z12.4 Encounter for screening for malignant neoplasm of cervix (principal)
CPT/HCPCS: 88142; 87624